=== PATIENT | female | born 1935 | race Caucasian/White ===

== ENCOUNTER 2017-03-31 12:37 | Day surgery (SDC) | payer MEDICARE ==
[~2017-03-31] VITALS: Ht 162.6 cm; Wt 84.4 kg
[~2017-03-31 12:37] MED LIST: AMLO10 PO; AMLO5 PO; AMOCLA875 PO; AMOX250 PO; AMOX500 PO; ASPI325 PO; ATEN50 PO; Alph-E-Mixed400 UNIT PO; Aspirin EC81 MG; B-121000 MC2 PO; BAYER; CALCAVITD PO; CHOL10002 PO; CIPR500 PO; CLOP75 PO; Co Q-10100 MG PO; DILT360ER PO; Desyrel50 MG; ESOM20 PO; FISH1000 PO; HYDACE5 PO; HYDHOMSY; Hydrochloroth12.5 MG PO; ISOMON60ER PO; Isosorbide Mono60 MG PO; METHI10; METHI10 PO; METO100ER PO; MULVITMINF PO; Nitrostat0.4 MG SL; Norco 5-325 Ta1 EACH PO; OMEGA 3 FISH OIL; PRENATAL VITAM1 EAC2 PO; PROM25 PO; ROSU10TA PO; ROSU5 PO; RXOXYACE PO; RXPROM25 PO; TOPROL XL200 MG PO; Tessalon200 MG; Toprol Xl200 MG; Zofran Odt4 MG SL; Zofran8 MG PO; [UNRECOGNIZED DRUG - OTHER]
== END 2017-03-31 16:00 | disposition home or self-care (01) ==
LOC: ORSCSDS 12:37
PROVIDERS: Obstetrics & Gynecology
PROC: 0UB98ZX Excision of Uterus, Via Natural or Artificial Opening Endoscopic, Diagnostic (ICD-10-PCS; principal; 2017-03-31 14:00)
PROC: 0UDB8ZX Extraction of Endometrium, Via Natural or Artificial Opening Endoscopic, Diagnostic (ICD-10-PCS; principal; 2017-03-31 14:00)
DX: N84.0 Polyp of corpus uteri (principal); I10 Essential (primary) hypertension; E03.9 Hypothyroidism, unspecified; E78.5 Hyperlipidemia, unspecified; R73.03 Prediabetes; Z87.891 Personal history of nicotine dependence; I25.10 Atherosclerotic heart disease of native coronary artery without angina pectoris; Z79.82 Long term (current) use of aspirin; Z79.899 Other long term (current) drug therapy
CPT/HCPCS: 76998; 88305; J2250; J2405; J3010; J7120

== ENCOUNTER → 2017-06-22 | Outpatient (CLI) | payer MEDICARE ==
[2017-06-22 17:04] LABS: Creatinine Urine 44.6 mg/dL (27.00-270.00); Protein, Urine Quantitative 123.9 mg/dL (0.0-11.9)
== END | disposition home or self-care (01) ==
LOC: LAB EV 05:00
PROVIDERS: Internal Medicine
DX: N18.3 Chronic kidney disease, stage 3 (moderate) (principal)
CPT/HCPCS: 81050; 82570; 84156

== ENCOUNTER → 2017-11-30 | Outpatient (CLI) | payer MEDICARE | END | disposition home or self-care (01) | LOC: LAB SHORT 08:29 → PLD 08:29 | DX: D48.5 Neoplasm of uncertain behavior of skin (principal) | CPT/HCPCS: 88305 ==

== ENCOUNTER 2018-01-12 20:00 | Emergency (ER) | payer MEDICARE ==
[~2018-01-12] VITALS: Ht 162.6 cm; Wt 85.7 kg
== END 2018-01-12 23:10 | disposition home or self-care (01) ==
LOC: ER 20:00
DX: I10 Essential (primary) hypertension (principal); Z87.891 Personal history of nicotine dependence; Z88.6 Allergy status to analgesic agent; Z79.899 Other long term (current) drug therapy; Z79.82 Long term (current) use of aspirin
CPT/HCPCS: 93005; 93010; 96374; 99282-25; J0360

== ENCOUNTER → 2018-04-21 | Outpatient (CLI) | payer MEDICARE ==
[2018-04-22 14:16] LABS: Stool Occult Bld Immuno 1 Positive (NEGATIVE); Stool Occult Bld Immuno 2 Positive (NEGATIVE); Stool Occult Bld Immuno 3 Positive (NEGATIVE)
== END | disposition home or self-care (01) ==
LOC: LAB EV 06:10
PROVIDERS: Nurse Practitioner
DX: R19.5 Other fecal abnormalities (principal)
CPT/HCPCS: 82274

== ENCOUNTER 2018-05-24 10:24 | Day surgery (SDC) | payer MEDICARE ==
[~2018-05-24] VITALS: Ht 162.6 cm; Wt 83.5 kg
== END 2018-05-24 12:38 | disposition home or self-care (01) ==
LOC: ORSCSDS 10:24
PROVIDERS: Internal Medicine Gastroenterology
PROC: 0DB48ZX Excision of Esophagogastric Junction, Via Natural or Artificial Opening Endoscopic, Diagnostic (ICD-10-PCS; principal; 2018-05-24 11:45)
PROC: 0DBL8ZX Excision of Transverse Colon, Via Natural or Artificial Opening Endoscopic, Diagnostic (ICD-10-PCS; principal; 2018-05-24 11:45)
PROC: 0DB68ZX Excision of Stomach, Via Natural or Artificial Opening Endoscopic, Diagnostic (ICD-10-PCS; principal; 2018-05-24 11:45)
DX: K92.1 Melena (principal); D12.3 Benign neoplasm of transverse colon; K57.30 Diverticulosis of large intestine without perforation or abscess without bleeding; K64.1 Second degree hemorrhoids; K21.0 Gastro-esophageal reflux disease with esophagitis; K29.70 Gastritis, unspecified, without bleeding; K44.9 Diaphragmatic hernia without obstruction or gangrene; I10 Essential (primary) hypertension; E11.9 Type 2 diabetes mellitus without complications; E03.9 Hypothyroidism, unspecified; E78.5 Hyperlipidemia, unspecified; Z87.891 Personal history of nicotine dependence; Z79.899 Other long term (current) drug therapy; Z79.82 Long term (current) use of aspirin
CPT/HCPCS: 88305; 88312; 88341; 88342; J2405; J7120

== ENCOUNTER → 2018-09-20 | Outpatient (CLI) | payer MEDICARE | END | disposition home or self-care (01) | LOC: PLD 11:34 → LAB SHORT 11:34 | DX: L57.0 Actinic keratosis (principal) | CPT/HCPCS: 88305 ==

== ENCOUNTER → 2019-03-27 | Outpatient (CLI) | payer MEDICARE | END | disposition home or self-care (01) | LOC: PLD 12:17 → LAB SHORT 12:17 | DX: L91.8 Other hypertrophic disorders of the skin (principal) | CPT/HCPCS: 88304 ==

== ENCOUNTER 2019-09-14 14:28 | Observation (INO) | payer MEDICARE ==
[~2019-09-14] VITALS: Ht 162.6 cm; Wt 86.8 kg
[~2019-09-14 14:28] MED LIST changes: -AMLO10 PO; -Aspirin EC81 MG; -Isosorbide Mono60 MG PO; -METHI10; -ROSU5 PO; -Toprol Xl200 MG
[2019-09-14 14:57] LABS: BASOPHILS ABSOLUTE AUTO 0.03 K/mm3 (0.00-0.23); BASOPHILS PERCENT AUTO 1 % (0-2); EOSINOPHILS ABSOLUTE AUTO 0.15 K/mm3 (0.00-0.68); EOSINOPHILS PERCENT AUTO 2 % (0-6); Hematocrit 36.9 % (33.0-51.0); Hemoglobin 12.4 g/dL (11.5-16.0); IMMATURE GRAN ABSOLUTE AUTO 0.03 K/mm3 (0.00-0.10); IMMATURE GRAN PERCENT AUTO 1 % (0-1); LYMPHOCYTES ABSOLUTE AUTO 1.78 K/mm3 (0.84-5.20); LYMPHOCYTES PERCENT AUTO 29 % (21-46); MONOCYTES ABSOLUTE AUTO 0.82 K/mm3 (0.16-1.47); MONOCYTES PERCENT AUTO 13 % (4-13); Mean Corpuscular HGB 30.1 pg (26.0-34.0); Mean Corpuscular HGB Conc 33.6 g/dL (31.5-36.5); Mean Corpuscular Volume 90 fL (80-100); Mean Platelet Volume 9.5 fL (9.1-12.4); NEUTROPHILS ABSOLUTE AUTO 3.38 K/mm3 (1.96-9.15); NEUTROPHILS PERCENT AUTO 55 % (41-73); Platelet Count 221 K/mm3 (150-400); RDW Coefficient Variation 12.9 % (11.7-14.2); RDW Standard Deviation 42.3 fL (35.1-46.3); Red Blood Cell Count 4.12 M/mm3 (3.80-5.20); White Blood Cell Count 6.19 K/mm3 (4.00-11.30)
[2019-09-14 15:14] LABS: Troponin I <0.015 ng/mL (0.000-0.040)
[2019-09-14 15:16] LABS: Alanine Aminotransfer (ALT/SGP 25 U/L (12-78); Albumin/Globulin Ratio 0.7 (0.8-1.8); Alk Phos 82 U/L (50-136); Anion Gap 10 mmol/L (6-16); Aspartate Aminotrans (AST/SGOT 23 U/L (12-37); Bilirubin, Total 0.5 mg/dL (0.1-1.0); Blood Urea Nitrogen 20 mg/dL (8-24); Bun/Creatinine Ratio 15.7 (12.0-20.0); CO2, Blood 24 mmol/L (21-32); Calcium, Blood 9.2 mg/dL (8.5-10.1); Chloride, Blood 97 mmol/L (98-108); Creatinine, Blood 1.27 mg/dL (0.40-1.00); Globulin, Blood 4.1 g/dL (2.2-4.0); Glomerular Filtration Rate 43 (60-); Glucose, Blood 190 mg/dL (70-99); Sodium, Blood 131 mmol/L (136-145); Total Protein, Blood 7.1 g/dL (6.4-8.2)
[2019-09-14] MEDS ORDERED: AMLODIPINE BES2.5 MG PO (18:22)
[2019-09-14] MEDS ORDERED: Isosorbide Mono60 MG (18:23)
[2019-09-14] MEDS ORDERED: Toprol Xl200 MG PO (18:24)
[2019-09-14] MEDS ORDERED: HYDCHL12.5 PO (18:24)
[2019-09-14] MEDS ORDERED: METHI10 PO (18:25)
[2019-09-14] MEDS ORDERED: ROSU5 PO (18:25)
[2019-09-14] MEDS ORDERED: VALSARTAN40 MG PO (18:26)
[2019-09-14] MEDS ORDERED: Aspirin EC81 MG PO (18:34)
[2019-09-15 04:26] LABS: Mean Corpuscular HGB 30.5 pg (26.0-34.0); Mean Corpuscular HGB Conc 33.3 g/dL (31.5-36.5); Mean Corpuscular Volume 91 fL (80-100); Mean Platelet Volume 9.4 fL (9.1-12.4); Platelet Count 206 K/mm3 (150-400); RDW Coefficient Variation 12.9 % (11.7-14.2); Red Blood Cell Count 3.94 M/mm3 (3.80-5.20)
[2019-09-15 04:46] LABS: Anion Gap 8 mmol/L (6-16); Blood Urea Nitrogen 21 mg/dL (8-24); Bun/Creatinine Ratio 15.3 (12.0-20.0); CO2, Blood 27 mmol/L (21-32); Chloride, Blood 98 mmol/L (98-108); Creatinine, Blood 1.37 mg/dL (0.40-1.00); Glomerular Filtration Rate 39 (60-); Glucose, Blood 169 mg/dL (70-99); Magnesium, Blood 1.8 mg/dL (1.6-2.4); Potassium, Blood 3.8 mmol/L (3.5-5.5); Sodium, Blood 133 mmol/L (136-145); Troponin I <0.015 ng/mL (0.000-0.040)
--- NOTE | 2019-09-15 07:37 | NUR ---
SHIFT SUMMARY PATIENT ARRIVED TO MEDICAL FLOOR VIA STRETCHER. PATIENT IS ALERT AND ORIENTED AND WAS ABLE TO SELF TRANSFER BETWEEN BED AND COMMODE INDEPENDENTLY. PATIENT HAS HAD NO COMPLAINTS OF CHEST PAIN SINCE ADMIT. IV PATENT AND INFUSING WITH NORMAL SALINE AT 75 ML/HR. BED IN LOWEST POSITION WITH WHEELS LOCKED. CALL LIGHT WITHIN REACH. REPORT GIVEN TO ONCOMING RN.
--- NOTE | 2019-09-15 19:57 | NUR ---
SUMMARY- PT A/O X3. TOLERATING FOOD AND FLUIDS. DENIED CHEST PAIN ALL DAY. HAD A SHOWER. PT UP AMBULATING IN THE LIZ FREQ. PT HAS REFRAINED FROM ALL CAFFEINE AND CHOCHLATE ALL DAY. AWARE OF PLAN FOR CARDIAC STRESS TEST FIRST THING IN THE AM BETWEEN [phone]. PLAN FOR NPO AFTER MN EXCEPT WATER AND MEDS. PLAN FOR STRESS PORTION 1000 AND TO HOLD ISOSORBIDE AM DOSE UNTIL AFTER STRESS PORTION. MAY GIVE METOPROLOL IN AM. PT'S BLOOD PRESURE MARGIONALLY ELEVATED, DR ADLER CALLED TO GIVE FIRST DOES OF NORVASC THIS PM AND CONT DAILY. REPORTED TO NOC RN TO F/U WITH BP.
[2019-09-15 23:08] LABS: Source, Urine Clean Catch
[2019-09-15 23:26] LABS: Bilirubin, Urine Neg (Neg); Blood, Urine Neg (Neg); Glucose Qualitative, Urine Neg (Neg); Ketones, Urine Neg (Neg); Leukocyte Esterase, Urine Neg (Neg); Nitrite, Urine Neg (Neg); Protein, Urine 3+ (Neg); Urobilinogen, Urine NORM (Normal); pH, Urine 6.5 (5.0-8.0)
[2019-09-15 23:27] LABS: Appearance, Urine Clear (Clear); Color, Urine Yellow (P-Yellow)
[2019-09-15 23:33] LABS: Bacteria Rare /hpf; Red Blood Cells, Urine Not Seen /hpf (0-2); Squamous Epithelial Cells Rare /hpf (Few); White Blood Cells, Urine 0-2 /hpf (0-5)
--- NOTE | 2019-09-16 00:47 | NUR ---
PHYSICIAN COMMUNICATION CONTACTED THE CONTACT WORKER LITHOGRAPHY PHYSICIAN, SHEY, AT 222 TO NOTIFY HIM THAT THE PATIENT HAD A CHANGE IN MENTAL STATUS. THIS RN REPORTED THAT AT 1900 THE PATIENT WAS FULLY ALERT AND ORIENTED AND CONVERSING WITH STAFF, BUT AT 2200 THE PATIENT WAS DIFFICULT TO ROUSE AND WAS DROWSY AND SLUGGISH. THIS RN RELATED THAT THE PATIENT WAS UNABLE TO TELL WHERE SHE WAS OR WHERE SHE LIVED AND SHE SEEMED ACUTELY CONFUSED. REPORTED THAT THE PATIENT HAD A BLOOD SUGAR OF 194 AND HER TELE WAS NORMAL SINUS RHYTHM AT 67. DR KAT SAID THAT EITHER HE OR DR ESTRADA WOULD COME TO SEE THE PATIENT. DR ESTRADA ASSESSED THE PATIENT AND ORDERED A STAT HEAD CT WO CONTRAST AND A UA.
--- NOTE | 2019-09-16 06:39 | NUR ---
SHIFT SUMMARY PATIENT ALERT AND ORIENTED. HAD NO COMPLAINTS OF CHEST PAIN. PATIENT HAD AN EPISODE OF CHANGE IN MENTATION AND WAS EXTREMELY CONFUSED WHEN AWOKEN FROM A DEEP SLEEP. PATIENT WAS AWAKE LONGER AND BECAME MORE AWARE OF HER SURROUNDINGS SHE RETURNED TO HER BASELINE MENTATION. PATIENT WAS SEEN BY DR ESTRADA AND HAD A HEAD CT AND UA DONE DURING THIS TIME TO RULE OUT ANY ACUTE PROBLEMS. PATIENT LATER STATED THAT THIS SORT OF BEHAVIOR IS NORMAL FOR HER WHEN WAKING FROM A DEEP SLEEP. IV PATENT AND FLUSHED. BED IN LOWEST POSITION WITH WHEELS LOCKED AND ALARM ON. CALL LIGHT WITHIN REACH. REPORT GIVEN TO ONCOMING RN.
[2019-09-16] MEDS ORDERED: AMLO10 PO (14:09)
[2019-09-16] MEDS ORDERED: CLOP75 PO (14:10)
--- NOTE | 2019-09-16 16:26 | NUR ---
PT DISCHARGED 1620 WITH DC INSTRUCTIONS. MEDS FAXED TO PHARMACY WHICH IS CLOSED NOW. ABLE TO GIVE ONE DOSE OF PLAVIX BEFORE DC TO START DOSE UNTIL SHE CAN HAVE ACESS TO RX TOMORROW. BP WAS ELEVATED PRIOR TO DC, CALL TO DR ADLER, GAVE PRN MED AND HCTZ DOSE AND BP CAME DOWN NICELY. PT IS DRIVING HOME WITH SISTER. HAS HAD NO CHEST DISCOMFORT TODAY. WILL SCHEDULE O.P CARDIAC STRESS TEST. UNABLE TO PERFORM PROCEDURE TODAY MACHINE WAS BROKEN.
== END 2019-09-16 16:20 | disposition home or self-care (01) ==
LOC: ER 14:28 → MEDS 14:29 → ER 20:26 → MEDS 20:35
PROVIDERS: Emergency Medicine; Internal Medicine; Nurse Practitioner Acute Care; ADMIT Internal Medicine
DX: R07.9 Chest pain, unspecified (principal); E05.90 Thyrotoxicosis, unspecified without thyrotoxic crisis or storm; E78.5 Hyperlipidemia, unspecified; I12.9 Hypertensive chronic kidney disease with stage 1 through stage 4 chronic kidney disease, or unspecified chronic kidney disease; E11.22 Type 2 diabetes mellitus with diabetic chronic kidney disease; I25.10 Atherosclerotic heart disease of native coronary artery without angina pectoris; Z95.5 Presence of coronary angioplasty implant and graft; Z79.899 Other long term (current) drug therapy; Z79.82 Long term (current) use of aspirin; N18.3 Chronic kidney disease, stage 3 (moderate); K21.9 Gastro-esophageal reflux disease without esophagitis; Z87.891 Personal history of nicotine dependence; Z88.6 Allergy status to analgesic agent
CPT/HCPCS: 36415; 70450; 71045; 80048; 80053; 81001; 82947; 83735; 84484; 85025; 85027; 93005; 93010; 96361; 96372; 96374; 96375; 99285-25; A9270; A9270-GY; G0378; J0706; J1650; J2405; J2785; J3010; J7030

== ENCOUNTER → 2020-04-01 | Outpatient (CLI) | payer MEDICARE ==
[~2020-04-01] MED LIST changes: +AMLO10 PO; +AMLODIPINE BES2.5 MG PO; +Aspirin EC81 MG PO; +FENO67 PO; +HYDCHL12.5 PO; +Isosorbide Mono60 MG; +NITR.4SL SL; +ROSU5 PO; +Toprol Xl200 MG PO; +VALSARTAN40 MG PO
== END | disposition home or self-care (01) ==
LOC: LAB 13:10 → LAB SHORT 13:10
DX: D04.39 Carcinoma in situ of skin of other parts of face (principal)
CPT/HCPCS: 88305

== ENCOUNTER 2020-06-21 10:14 | Observation (INO) | payer MEDICARE ==
[~2020-06-21] VITALS: Ht 162.6 cm; Wt 88.5 kg
[~2020-06-21 10:14] MED LIST changes: -FENO67 PO; -NITR.4SL SL
[2020-06-21 10:48] LABS: BASOPHILS ABSOLUTE AUTO 0.03 K/mm3 (0.00-0.23); BASOPHILS PERCENT AUTO 1 % (0-2); EOSINOPHILS ABSOLUTE AUTO 0.15 K/mm3 (0.00-0.68); EOSINOPHILS PERCENT AUTO 3 % (0-6); Hematocrit 36.2 % (33.0-51.0); Hemoglobin 12.4 g/dL (11.5-16.0); IMMATURE GRAN ABSOLUTE AUTO 0.02 K/mm3 (0.00-0.10); IMMATURE GRAN PERCENT AUTO 0 % (0-1); LYMPHOCYTES ABSOLUTE AUTO 1.48 K/mm3 (0.84-5.20); LYMPHOCYTES PERCENT AUTO 25 % (21-46); MONOCYTES ABSOLUTE AUTO 0.59 K/mm3 (0.16-1.47); MONOCYTES PERCENT AUTO 10 % (4-13); Mean Corpuscular HGB 30.7 pg (26.0-34.0); Mean Corpuscular HGB Conc 34.3 g/dL (31.5-36.5); Mean Corpuscular Volume 90 fL (80-100); NEUTROPHILS ABSOLUTE AUTO 3.58 K/mm3 (1.96-9.15); NEUTROPHILS PERCENT AUTO 61 % (41-73); Platelet Count 225 K/mm3 (150-400); RDW Coefficient Variation 13.8 % (11.7-14.2); RDW Standard Deviation 45.1 fL (35.1-46.3); Red Blood Cell Count 4.04 M/mm3 (3.80-5.20); White Blood Cell Count 5.85 K/mm3 (4.00-11.30)
[2020-06-21 11:09] LABS: Alanine Aminotransfer (ALT/SGP 19 U/L (12-78); Albumin, Blood 3.2 g/dL (3.4-5.0); Albumin/Globulin Ratio 0.8 (0.8-1.8); Alk Phos 65 U/L (50-136); Anion Gap 7 mmol/L (6-16); Aspartate Aminotrans (AST/SGOT 16 U/L (12-37); Bilirubin, Total 0.3 mg/dL (0.1-1.0); Blood Urea Nitrogen 18 mg/dL (8-24); Bun/Creatinine Ratio 14.2 (12.0-20.0); CO2, Blood 24 mmol/L (21-32); Calcium, Blood 9.1 mg/dL (8.5-10.1); Chloride, Blood 106 mmol/L (98-108); Creatinine, Blood 1.27 mg/dL (0.40-1.00); Globulin, Blood 3.8 g/dL (2.2-4.0); Glomerular Filtration Rate 43 (60-); Glucose, Blood 154 mg/dL (70-99); Potassium, Blood 4.6 mmol/L (3.5-5.5); Sodium, Blood 137 mmol/L (136-145); Troponin I <0.015 ng/mL (0.000-0.040)
[2020-06-21] MEDS ORDERED: NITR.4SL SL (12:00)
--- NOTE | 2020-06-21 19:12 | NUR ---
SHIFT SUMMARY: PATIENT ADMIT (OBS) FROM ED THIS SHIFT. PT A&O; CALM AND COOPERATIVE WITH CARE. NO C/O PAIN SINCE ARRIVAL ON MEDICAL. TELE IN PLACE; SR @ 71 PER FLIGHT ATTENDANT/INFLIGHT MANAGER. TROPONINS X2 NEGATIVE; ADDITIONAL TROPONIN PLANNED. CLEAR LIQUID DIET; PT TOLERATING WELL. REPORT GIVEN TO ONCOMING RN.
[2020-06-22 04:45] LABS: BASOPHILS ABSOLUTE AUTO 0.04 K/mm3 (0.00-0.23); BASOPHILS PERCENT AUTO 1 % (0-2); EOSINOPHILS ABSOLUTE AUTO 0.18 K/mm3 (0.00-0.68); EOSINOPHILS PERCENT AUTO 3 % (0-6); Hematocrit 39.2 % (33.0-51.0); IMMATURE GRAN ABSOLUTE AUTO 0.01 K/mm3 (0.00-0.10); IMMATURE GRAN PERCENT AUTO 0 % (0-1); LYMPHOCYTES PERCENT AUTO 28 % (21-46); MONOCYTES ABSOLUTE AUTO 0.76 K/mm3 (0.16-1.47); MONOCYTES PERCENT AUTO 12 % (4-13); Mean Corpuscular HGB 30.7 pg (26.0-34.0); Mean Corpuscular HGB Conc 33.2 g/dL (31.5-36.5); Mean Corpuscular Volume 93 fL (80-100); Mean Platelet Volume 10.2 fL (9.1-12.4); NEUTROPHILS ABSOLUTE AUTO 3.56 K/mm3 (1.96-9.15); NEUTROPHILS PERCENT AUTO 56 % (41-73); Platelet Count 221 K/mm3 (150-400); RDW Coefficient Variation 14.1 % (11.7-14.2); RDW Standard Deviation 47.6 fL (35.1-46.3); Red Blood Cell Count 4.24 M/mm3 (3.80-5.20); White Blood Cell Count 6.35 K/mm3 (4.00-11.30)
[2020-06-22 05:22] LABS: Alanine Aminotransfer (ALT/SGP 20 U/L (12-78); Albumin, Blood 3.2 g/dL (3.4-5.0); Albumin/Globulin Ratio 0.8 (0.8-1.8); Alk Phos 63 U/L (50-136); Anion Gap 7 mmol/L (6-16); Aspartate Aminotrans (AST/SGOT 15 U/L (12-37); Bilirubin, Total 0.7 mg/dL (0.1-1.0); Blood Urea Nitrogen 16 mg/dL (8-24); Bun/Creatinine Ratio 13.2 (12.0-20.0); CHOL/HDL RATIO 3.8; CO2, Blood 27 mmol/L (21-32); Calcium, Blood 9.5 mg/dL (8.5-10.1); Chloride, Blood 105 mmol/L (98-108); Cholesterol 154 mg/dL (50-200); Creatinine, Blood 1.21 mg/dL (0.40-1.00); Globulin, Blood 4.2 g/dL (2.2-4.0); Glomerular Filtration Rate 45 (60-); Glucose, Blood 126 mg/dL (70-99); HDL Cholesterol 40 mg/dL (>39); LDL/HDL RATIO Unable to Calculate; Low Density Lipoprotein Chol Unable to Calculate mg/dL (0-110); Sodium, Blood 139 mmol/L (136-145); Total Protein, Blood 7.4 g/dL (6.4-8.2); Triglycerides 456 mg/dL (30-160); Very Low Density Lipoprot Chol Unable to Calculate mg/dL (6-32)
--- NOTE | 2020-06-22 05:28 | NUR ---
PT IS A/O AND PLEASANT, DENIES PAIN OR SOB, PROVIDER CALLED THIS SHIFT PT WAS BRADYCARDIC AT 58 PER TELE MONITOR, SCHEDULED 200 MG PO METOPROLOL WAS HELD AND PER PROVIDER ORDER A OT DOSE OF 100MG METOPROLOL GIVEN. CBG IN AM, TROPONINS HAVE BEEN NEGATIVE SO FAR THIS SHIFT.
[2020-06-22] MEDS ORDERED: FENO67 PO (12:33)
--- NOTE | 2020-06-22 18:29 | NUR ---
PATIENT DISCHARGE:PATIENT DISCHARGED TO HOME THIS SHIFT. MEDICATION RECONCILIATION COMPLETED; [facility] DISCHARGE EDUCATION COMPLETED WITH PATIENT. PATIENT TRANSPORTED TO EXIT BY [facility] ST[facility] WITH WHEELCHAIR AT 1545. PATIENT DEPARTED [facility] VIA PRIVATE AUTO.
== END 2020-06-22 15:44 | disposition home or self-care (01) ==
LOC: ER 10:14 → ERHOLD 10:15 → MEDS 17:20 → ENPENDDIS 06-22 12:00 → MEDS 06-22 15:44
PROVIDERS: Physician Assistant; ADMIT Family Medicine
DX: R07.9 Chest pain, unspecified (principal); I25.10 Atherosclerotic heart disease of native coronary artery without angina pectoris; I71.4 Abdominal aortic aneurysm, without rupture; E11.22 Type 2 diabetes mellitus with diabetic chronic kidney disease; I12.9 Hypertensive chronic kidney disease with stage 1 through stage 4 chronic kidney disease, or unspecified chronic kidney disease; N18.30 Chronic kidney disease, stage 3 unspecified; E78.1 Pure hyperglyceridemia; I25.2 Old myocardial infarction; K85.90 Acute pancreatitis without necrosis or infection, unspecified; E66.9 Obesity, unspecified; Z87.891 Personal history of nicotine dependence; Z95.5 Presence of coronary angioplasty implant and graft
CPT/HCPCS: 36415; 71046; 76705; 80053; 80061; 82947; 83036; 83690; 84484; 85025; 93005; 93010; A9270; A9270-GY; J1650; J7120

== ENCOUNTER 2020-10-02 07:38 | Inpatient (IN) | payer MEDICARE ==
[~2020-10-02] VITALS: Ht 162.6 cm; Wt 86.4 kg
[~2020-10-02 07:38] MED LIST changes: +FENO67 PO; -Isosorbide Mono60 MG; +Isosorbide Mono60 MG PO; +NITR.4SL SL; +VALS80 PO; -VALSARTAN40 MG PO
[2020-10-02] MEDS ORDERED: Vitamin D2000 UNIT PO (08:01)
[2020-10-02] MEDS ORDERED: GLIP5ER PO (08:02)
[2020-10-02 08:27] LABS: BASOPHILS ABSOLUTE AUTO 0.02 K/mm3 (0.00-0.23); BASOPHILS PERCENT AUTO 0 % (0-2); EOSINOPHILS ABSOLUTE AUTO 0.01 K/mm3 (0.00-0.68); EOSINOPHILS PERCENT AUTO 0 % (0-6); Hematocrit 32.9 % (33.0-51.0); Hemoglobin 11.1 g/dL (11.5-16.0); IMMATURE GRAN ABSOLUTE AUTO 0.01 K/mm3 (0.00-0.10); IMMATURE GRAN PERCENT AUTO 0 % (0-1); LYMPHOCYTES ABSOLUTE AUTO 1.05 K/mm3 (0.84-5.20); LYMPHOCYTES PERCENT AUTO 15 % (21-46); MONOCYTES ABSOLUTE AUTO 0.78 K/mm3 (0.16-1.47); MONOCYTES PERCENT AUTO 12 % (4-13); Mean Corpuscular HGB 30.5 pg (26.0-34.0); Mean Corpuscular HGB Conc 33.7 g/dL (31.5-36.5); Mean Corpuscular Volume 90 fL (80-100); NEUTROPHILS ABSOLUTE AUTO 4.93 K/mm3 (1.96-9.15); NEUTROPHILS PERCENT AUTO 73 % (41-73); Platelet Count 253 K/mm3 (150-400); RDW Coefficient Variation 13.2 % (11.7-14.2); RDW Standard Deviation 44.3 fL (35.1-46.3); Red Blood Cell Count 3.64 M/mm3 (3.80-5.20)
[2020-10-02 08:50] LABS: Albumin, Blood 2.6 g/dL (3.4-5.0); Albumin/Globulin Ratio 0.5 (0.8-1.8); Bilirubin, Total 0.6 mg/dL (0.1-1.0); Bun/Creatinine Ratio 11.9 (12.0-20.0); Calcium, Blood 9.1 mg/dL (8.5-10.1); Creatinine, Blood 1.77 mg/dL (0.40-1.00); Globulin, Blood 4.8 g/dL (2.2-4.0); Potassium, Blood 3.6 mmol/L (3.5-5.5); Total Protein, Blood 7.4 g/dL (6.4-8.2)
[2020-10-02 12:30] LABS: Source, Urine Clean Catch
[2020-10-02 12:34] LABS: Appearance, Urine Clear (Clear); Bilirubin, Urine Neg (Neg); Blood, Urine 1+ (Neg); Color, Urine Yellow (P-Yellow); Glucose Qualitative, Urine Neg (Neg); Ketones, Urine Neg (Neg); Leukocyte Esterase, Urine Neg (Neg); Nitrite, Urine Neg (Neg); Protein, Urine 4+ (Neg); Specific Gravity, Urine 1.015 (1.003-1.022); Urobilinogen, Urine NORM (Normal); pH, Urine 6.5 (5.0-8.0)
[2020-10-02 13:24] LABS: Bacteria Rare /hpf; Red Blood Cells, Urine Not Seen /hpf (0-2); Squamous Epithelial Cells Rare /hpf (Few)
[2020-10-02] MEDS ORDERED: FURO20 PO (16:31)
[2020-10-03 05:06] LABS: BASOPHILS ABSOLUTE AUTO 0.01 K/mm3 (0.00-0.23); BASOPHILS PERCENT AUTO 0 % (0-2); EOSINOPHILS PERCENT AUTO 0 % (0-6); Hematocrit 35.5 % (33.0-51.0); Hemoglobin 11.7 g/dL (11.5-16.0); IMMATURE GRAN ABSOLUTE AUTO 0.02 K/mm3 (0.00-0.10); IMMATURE GRAN PERCENT AUTO 0 % (0-1); LYMPHOCYTES ABSOLUTE AUTO 0.62 K/mm3 (0.84-5.20); LYMPHOCYTES PERCENT AUTO 11 % (21-46); MONOCYTES ABSOLUTE AUTO 0.14 K/mm3 (0.16-1.47); MONOCYTES PERCENT AUTO 2 % (4-13); Mean Corpuscular Volume 91 fL (80-100); Mean Platelet Volume 10.3 fL (9.1-12.4); NEUTROPHILS ABSOLUTE AUTO 5.07 K/mm3 (1.96-9.15); NEUTROPHILS PERCENT AUTO 87 % (41-73); Platelet Count 262 K/mm3 (150-400); RDW Coefficient Variation 13.3 % (11.7-14.2); RDW Standard Deviation 44.7 fL (35.1-46.3); White Blood Cell Count 5.86 K/mm3 (4.00-11.30)
[2020-10-03 05:53] LABS: Alanine Aminotransfer (ALT/SGP 19 U/L (12-78); Albumin, Blood 2.5 g/dL (3.4-5.0); Albumin/Globulin Ratio 0.5 (0.8-1.8); Alk Phos 51 U/L (50-136); Anion Gap 8 mmol/L (6-16); Aspartate Aminotrans (AST/SGOT 13 U/L (12-37); Bilirubin, Total 0.5 mg/dL (0.1-1.0); Blood Urea Nitrogen 23 mg/dL (8-24); Bun/Creatinine Ratio 12.3 (12.0-20.0); CO2, Blood 23 mmol/L (21-32); Calcium, Blood 9.6 mg/dL (8.5-10.1); Chloride, Blood 105 mmol/L (98-108); Creatinine, Blood 1.87 mg/dL (0.40-1.00); Globulin, Blood 5.2 g/dL (2.2-4.0); Glomerular Filtration Rate 26 (60-); Glucose, Blood 218 mg/dL (70-99); Potassium, Blood 3.9 mmol/L (3.5-5.5); Sodium, Blood 136 mmol/L (136-145); Total Protein, Blood 7.7 g/dL (6.4-8.2); Triglycerides 148 mg/dL (30-160)
--- NOTE | 2020-10-03 06:35 | NUR ---
COMPENSATION INTERN SUMMARY PT AAOX3. VERY SLEEPY AT START OF SHIFT BUT WAS ABLE TO COMMUNICATE AND TAKE MEDS WITH WATER. PT REFUSED LOVENOX INJECTION AT BEDTIME. REMAINS ON 2L O2 VIA NC. PT HAS SLEPT MOST OF THE NIGHT BUT DOES CALL APPROPRIATELY FOR ASSISTANCE TO BSC. VSS, WILL CONTINUE TO MONITOR.
--- NOTE | 2020-10-03 18:33 | NUR ---
Pt has remained stable this shift. She is alert, oriented, pleasant. No concerns with pt. Possible discharge tomorrow, per
--- NOTE | 2020-10-04 06:05 | NUR ---
SHIFT SUMMARY- PT. A&O, PLEASANT, AND COOPERATIVE WITH CARE. INDEPENDENT IN ROOM. HAD NO COMPLAINTS OF PAIN OR DISCOMFORT DURING THE NIGHT. SLEPT T/O THE NIGHT, NO APPARENT DISTRESS NOTED. ON RA, VSS. DENIES ANY NEEDS AT THIS TIME. CALL LIGHT WITHIN REACH AND SIDE RAILS UPX2. WILL CONT TO MONITOR.
[2020-10-04] MEDS ORDERED: Acetaminophen650 M1 PO (17:36)
[2020-10-04] MEDS ORDERED: ELIQUIS2.5 MG PO (17:37)
[2020-10-04] MEDS ORDERED: FAMO20 PO (17:38)
[2020-10-04] MEDS ORDERED: ASCORBIC ACID500 MG PO (17:38)
[2020-10-04] MEDS ORDERED: ZINC220 PO (17:39)
--- NOTE | 2020-10-04 18:35 | NUR ---
Discharge Summary Discharging to home. Reviewed discharge paperwork with patient and daughter at bedside. Questions answered to their satisfaction. Dr. Caldera notified this RN of changes to discharge meds : To cancel Eliquis d/t AAA and keep all others. This was relayed to patient and daughter. Per patient "I will run these (medications) by my kidney doctor and my doctor before taking them." Reassured patient that Dr. Caldera works in same office as PCP and that PCP will know what meds have been prescribed. Copy of d/c papers give. IV removed, WNL. Escorted by this RN via w/c. Personal belongings sent home.
== END 2020-10-04 18:23 | disposition home or self-care (01) | DRG 177 ==
LOC: ER 07:38 → ERHOLD 07:39 → MEDS 17:07
PROVIDERS: Emergency Medicine; ADMIT Family Medicine
PROC: 8E0ZXY6 Isolation (ICD-10-PCS; principal; 2020-10-02)
DX: U07.1 COVID-19 (principal); J12.82 Pneumonia due to coronavirus disease 2019; J96.01 Acute respiratory failure with hypoxia; N18.4 Chronic kidney disease, stage 4 (severe); I12.9 Hypertensive chronic kidney disease with stage 1 through stage 4 chronic kidney disease, or unspecified chronic kidney disease; E11.22 Type 2 diabetes mellitus with diabetic chronic kidney disease; E78.1 Pure hyperglyceridemia; K21.9 Gastro-esophageal reflux disease without esophagitis; I71.4 Abdominal aortic aneurysm, without rupture; Z98.890 Other specified postprocedural states; I25.2 Old myocardial infarction; Z88.8 Allergy status to other drugs, medicaments and biological substances; Z79.82 Long term (current) use of aspirin; Z79.84 Long term (current) use of oral hypoglycemic drugs; Z79.899 Other long term (current) drug therapy
CPT/HCPCS: 36415; 71045; 74022; 74177; 78580; 80053; 81001; 82728; 82947; 83690; 84145; 84478; 85025; 85379; 85651; 86140; 93005; 93010; 96365; 96366; 96375; 96376; 99285-25; A9270; A9540; J0696; J1650; J2270; J2405; J2920; Q9967

== ENCOUNTER 2021-02-02 09:25 | Emergency (ER) | payer MEDICARE ==
[~2021-02-02] VITALS: Ht 162.6 cm; Wt 81.7 kg
[~2021-02-02 09:25] MED LIST changes: +ASCORBIC ACID500 MG PO; +Acetaminophen650 M1 PO; +ELIQUIS2.5 MG PO; +FAMO20 PO; +FURO20 PO; +GLIP5ER PO; +Vitamin D2000 UNIT PO; +ZINC220 PO
[2021-02-02] MEDS ORDERED: HYDR1TAB94 PO (10:56)
== END 2021-02-02 11:02 | disposition home or self-care (01) ==
LOC: ER 09:25
DX: S46.011A Strain of muscle(s) and tendon(s) of the rotator cuff of right shoulder, initial encounter (principal); M25.462 Effusion, left knee; M25.521 Pain in right elbow; I10 Essential (primary) hypertension; E11.9 Type 2 diabetes mellitus without complications; I25.2 Old myocardial infarction; Z88.6 Allergy status to analgesic agent; Z79.82 Long term (current) use of aspirin; Z79.899 Other long term (current) drug therapy; W18.30XA Fall on same level, unspecified, initial encounter
CPT/HCPCS: 73030; 99284; A9270

== ENCOUNTER 2021-02-07 10:35 | Emergency (ER) | payer MEDICARE ==
[~2021-02-07] VITALS: Ht 162.6 cm; Wt 86.2 kg
[~2021-02-07 10:35] MED LIST changes: +HYDR1TAB94 PO
[2021-02-07] MEDS ORDERED: OXYC5 PO (12:33)
== END 2021-02-07 12:57 | disposition home or self-care (01) ==
LOC: ER 10:35
DX: M25.461 Effusion, right knee (principal); I10 Essential (primary) hypertension; E11.9 Type 2 diabetes mellitus without complications; I25.2 Old myocardial infarction; Z87.891 Personal history of nicotine dependence; Z79.899 Other long term (current) drug therapy; Z79.82 Long term (current) use of aspirin
CPT/HCPCS: 93971; 99283-25

== ENCOUNTER → 2021-05-14 | Outpatient (CLI) | payer MEDICARE ==
[~2021-05-14] MED LIST changes: +OXYC5 PO
[2021-05-14 14:43] LABS: Calcium, Urine 5.1 mg/dL (< 17.5)
[2021-05-14 15:16] LABS: Creatinine Urine 33.8 mg/dL (27.00-270.00)
[2021-05-14 15:45] LABS: Calcium, Urine Calculation 183.6 mg/24hrs (42.0-353.0)
== END ==
LOC: LAB SHORT 09:00 → LAB 09:00
PROVIDERS: Internal Medicine Endocrinology, Diabetes & Metabolism
DX: N25.81 Secondary hyperparathyroidism of renal origin (principal)
CPT/HCPCS: 81050; 82340; 82570

== ENCOUNTER 2021-09-29 11:01 | Day surgery (SDC) | payer MEDICARE ==
[~2021-09-29] VITALS: Ht 162.6 cm; Wt 88.1 kg
[~2021-09-29 11:01] MED LIST changes: +FERSU300
--- NOTE | 2021-09-29 11:35 | NUR ---
REPORT FROM ANA MARIA CUETO RN. PT AXOX4, ABLE TO REPOSITION SELF IN BED.
--- NOTE | 2021-09-29 12:12 | NUR ---
09/29/21 1212 Sumit Sparks HISTORY, CHART, MEDICATIONS AND ALLERGIES REVIEWED BEFORE START OF PROCEDURE. PATIENT CONFIRMS NPO STATUS AND AGREES WITH SCHEDULED PROCEDURE. 3-LEAD EKG REVIEWED WITH PHYSICIAN PRIOR TO START OF PROCEDURE. MONITOR INTACT WITH CONTINUOUS PULSE OXIMETRY,CAPNOGRAPHY, 3-LEAD EKG, INTERMITTENT BP. SUPPLEMENTAL O2 TO BE TITRATED THROUGHOUT PROCEDURE TO MAINTAIN O2 SATURATION ABOVE 90%. PATIENT DETERMINED TO BE ASA APPROPRIATE FOR PROPOFOL SEDATION PRIOR TO START OF PROCEDURE BY DR. MARTÍNEZ.
--- NOTE | 2021-09-29 12:34 | NUR ---
ACCEPTED PATIENT VSS. PATIENT CONTINUES TO SLEEP
--- NOTE | 2021-09-29 13:04 | NUR ---
Discharge instructions reviewed with patient. Patient verbalizes understanding. Copy given to patient to take home. Patient States Post-Procedure ride home has been arranged. Discharged via wheelchair to private car for ride home.
== END 2021-09-29 13:06 | disposition home or self-care (01) ==
LOC: ORSCMMR 11:01 → ORD 12:15 → ORSCMMR 13:06
PROVIDERS: Student in an Organized Health Care Education/Training Program
PROC: 0DB68ZX Excision of Stomach, Via Natural or Artificial Opening Endoscopic, Diagnostic (ICD-10-PCS; principal; 2021-09-29 12:15)
DX: K31.A0 Gastric intestinal metaplasia, unspecified (principal); K29.00 Acute gastritis without bleeding; K44.9 Diaphragmatic hernia without obstruction or gangrene; E11.22 Type 2 diabetes mellitus with diabetic chronic kidney disease; I12.9 Hypertensive chronic kidney disease with stage 1 through stage 4 chronic kidney disease, or unspecified chronic kidney disease; N18.30 Chronic kidney disease, stage 3 unspecified; E03.9 Hypothyroidism, unspecified; I25.10 Atherosclerotic heart disease of native coronary artery without angina pectoris; G25.81 Restless legs syndrome; K21.9 Gastro-esophageal reflux disease without esophagitis; Z79.82 Long term (current) use of aspirin; Z79.84 Long term (current) use of oral hypoglycemic drugs; Z79.899 Other long term (current) drug therapy; Z87.891 Personal history of nicotine dependence
CPT/HCPCS: 82947; 88305; 88341; 88342; J2704; J7120

== ENCOUNTER 2022-06-29 23:19 | Emergency (ER) | payer MEDICARE ==
[~2022-06-29] VITALS: Ht 162.6 cm; Wt 90.7 kg
[~2022-06-29 23:19] MED LIST changes: +CO Q10100 MG PO; +FISH OIL-VIT D1 EACH PO; +HYDCHL25 PO; +PRENATAL TABLE1 EAC2 PO; +VITAMIN E400 UNIT PO
[2022-06-29] MEDS ORDERED: FURO20 PO (23:41)
[2022-06-29] MEDS ORDERED: ALEN70 PO (23:42)
[2022-06-29 23:52] LABS: BASOPHILS ABSOLUTE AUTO 0.03 K/mm3 (0.00-0.23); BASOPHILS PERCENT AUTO 0 % (0-2); EOSINOPHILS ABSOLUTE AUTO 0.08 K/mm3 (0.00-0.68); EOSINOPHILS PERCENT AUTO 1 % (0-6); Hematocrit 36.5 % (33.0-51.0); Hemoglobin 12.2 g/dL (11.5-16.0); IMMATURE GRAN ABSOLUTE AUTO 0.01 K/mm3 (0.00-0.10); IMMATURE GRAN PERCENT AUTO 0 % (0-1); LYMPHOCYTES ABSOLUTE AUTO 1.23 K/mm3 (0.84-5.20); LYMPHOCYTES PERCENT AUTO 18 % (21-46); MONOCYTES ABSOLUTE AUTO 0.79 K/mm3 (0.16-1.47); MONOCYTES PERCENT AUTO 12 % (4-13); Mean Corpuscular HGB 30.5 pg (26.0-34.0); Mean Corpuscular HGB Conc 33.4 g/dL (31.5-36.5); Mean Corpuscular Volume 91 fL (80-100); Mean Platelet Volume 10.5 fL (9.1-12.4); NEUTROPHILS ABSOLUTE AUTO 4.72 K/mm3 (1.96-9.15); NEUTROPHILS PERCENT AUTO 69 % (41-73); Platelet Count 154 K/mm3 (150-400); RDW Coefficient Variation 13.4 % (11.7-14.2); RDW Standard Deviation 45.1 fL (35.1-46.3); White Blood Cell Count 6.86 K/mm3 (4.00-11.30)
[2022-06-30 00:05] LABS: Albumin, Blood 2.8 g/dL (3.4-5.0); Albumin/Globulin Ratio 0.8 (0.8-1.8); Bilirubin, Total 0.3 mg/dL (0.1-1.0); Bun/Creatinine Ratio 10.9 (12.0-20.0); Calcium, Blood 9.2 mg/dL (8.5-10.1); Creatinine, Blood 1.74 mg/dL (0.40-1.00); Globulin, Blood 3.7 g/dL (2.2-4.0); Potassium, Blood 3.6 mmol/L (3.5-5.5); Total Protein, Blood 6.5 g/dL (6.4-8.2)
[2022-06-30 02:05] LABS: International Normalized Ratio 0.97; Prothrombin Time Results 10.2 Sec (9.7-11.5)
[2022-06-30 02:19] VITALS: BP 150/61
== END 2022-06-30 02:40 | disposition short-term general hospital (02) ==
LOC: ER 23:19
PROVIDERS: Student in an Organized Health Care Education/Training Program
DX: I71.02 Dissection of abdominal aorta (principal); I16.1 Hypertensive emergency; I10 Essential (primary) hypertension; E11.9 Type 2 diabetes mellitus without complications; E78.5 Hyperlipidemia, unspecified; Z79.82 Long term (current) use of aspirin; Z79.84 Long term (current) use of oral hypoglycemic drugs; Z79.899 Other long term (current) drug therapy
CPT/HCPCS: 36415; 71275; 74175; 80053; 83605; 85025; 85610; 85730; 86850; 86900; 86901; 93005; 93010; 96365-59; 96368; 96375-59; 99285-25; J1170; J2405; J7050; Q9967

== ENCOUNTER 2022-07-11 07:40 | Emergency (ER) | payer MEDICARE ==
[~2022-07-11] VITALS: Ht 162.6 cm; Wt 82.1 kg
[~2022-07-11 07:40] MED LIST changes: +ALEN70 PO; +OXAYDO5 M1 PO
[2022-07-11 11:00] VITALS: BP 158/69
== END 2022-07-11 11:21 | disposition home or self-care (01) ==
LOC: ER 07:40
DX: K59.00 Constipation, unspecified (principal); I10 Essential (primary) hypertension; E11.9 Type 2 diabetes mellitus without complications; I25.10 Atherosclerotic heart disease of native coronary artery without angina pectoris; E78.5 Hyperlipidemia, unspecified; I25.2 Old myocardial infarction; Z88.6 Allergy status to analgesic agent; Z79.899 Other long term (current) drug therapy; Z79.82 Long term (current) use of aspirin; Z79.84 Long term (current) use of oral hypoglycemic drugs; Z87.891 Personal history of nicotine dependence
CPT/HCPCS: 74018; 99283; A9270

== ENCOUNTER 2022-07-25 23:25 | Emergency (ER) | payer MEDICARE ==
[~2022-07-25] VITALS: Ht 162.6 cm; Wt 83.5 kg
[2022-07-25 23:49] LABS: BASOPHILS ABSOLUTE AUTO 0.03 K/mm3 (0.00-0.23); BASOPHILS PERCENT AUTO 1 % (0-2); EOSINOPHILS ABSOLUTE AUTO 0.18 K/mm3 (0.00-0.68); EOSINOPHILS PERCENT AUTO 3 % (0-6); Hematocrit 30.3 % (33.0-51.0); Hemoglobin 10.3 g/dL (11.5-16.0); IMMATURE GRAN ABSOLUTE AUTO 0.01 K/mm3 (0.00-0.10); IMMATURE GRAN PERCENT AUTO 0 % (0-1); LYMPHOCYTES PERCENT AUTO 21 % (21-46); MONOCYTES PERCENT AUTO 10 % (4-13); Mean Corpuscular HGB 30.7 pg (26.0-34.0); Mean Corpuscular Volume 90 fL (80-100); Mean Platelet Volume 9.8 fL (9.1-12.4); NEUTROPHILS ABSOLUTE AUTO 4.09 K/mm3 (1.96-9.15); NEUTROPHILS PERCENT AUTO 66 % (41-73); Platelet Count 227 K/mm3 (150-400); RDW Coefficient Variation 13.4 % (11.7-14.2); RDW Standard Deviation 43.9 fL (35.1-46.3); Red Blood Cell Count 3.35 M/mm3 (3.80-5.20); White Blood Cell Count 6.21 K/mm3 (4.00-11.30)
[2022-07-26 00:01] LABS: Albumin, Blood 2.7 g/dL (3.4-5.0); Albumin/Globulin Ratio 0.7 (0.8-1.8); Bilirubin, Total 0.2 mg/dL (0.1-1.0); Bun/Creatinine Ratio 7.6 (12.0-20.0); Calcium, Blood 9.1 mg/dL (8.5-10.1); Creatinine, Blood 1.85 mg/dL (0.40-1.00); Globulin, Blood 3.9 g/dL (2.2-4.0); Potassium, Blood 3.5 mmol/L (3.5-5.5); Total Protein, Blood 6.6 g/dL (6.4-8.2)
[2022-07-26 01:04] LABS: Source, Urine Foley catheter
[2022-07-26 01:06] LABS: Bilirubin, Urine Neg (Neg); Blood, Urine Neg (Neg); Glucose Qualitative, Urine Neg (Neg); Ketones, Urine Neg (Neg); Leukocyte Esterase, Urine Neg (Neg); Nitrite, Urine Neg (Neg); Protein, Urine 3+ (Neg); Specific Gravity, Urine 1.005 (1.003-1.022); Urobilinogen, Urine NORM (Normal)
[2022-07-26 01:16] LABS: Appearance, Urine Clear (Clear); Bacteria Not Seen /hpf; Color, Urine No Color (P-Yellow); Red Blood Cells, Urine Not Seen /hpf (0-2); Squamous Epithelial Cells Rare /hpf (Few); Transitional Epithelial Cells Rare /hpf (0-Rare); White Blood Cells, Urine Not Seen /hpf (0-5)
[2022-07-26 01:30] VITALS: BP 171/78
[2022-07-26] MEDS ORDERED: METR500 PO (02:16)
[2022-07-26] MEDS ORDERED: CIPR500 PO (02:16)
== END 2022-07-26 02:41 | disposition home or self-care (01) ==
LOC: ER 23:25
PROVIDERS: Emergency Medicine
DX: K57.32 Diverticulitis of large intestine without perforation or abscess without bleeding (principal); I71.40 Abdominal aortic aneurysm, without rupture, unspecified; D64.9 Anemia, unspecified; E11.22 Type 2 diabetes mellitus with diabetic chronic kidney disease; I12.9 Hypertensive chronic kidney disease with stage 1 through stage 4 chronic kidney disease, or unspecified chronic kidney disease; N18.4 Chronic kidney disease, stage 4 (severe); E78.5 Hyperlipidemia, unspecified; I25.2 Old myocardial infarction; I25.10 Atherosclerotic heart disease of native coronary artery without angina pectoris; Z79.899 Other long term (current) drug therapy; Z88.6 Allergy status to analgesic agent; Z79.82 Long term (current) use of aspirin; Z95.5 Presence of coronary angioplasty implant and graft; Z87.891 Personal history of nicotine dependence; Z66 Do not resuscitate
CPT/HCPCS: 51701; 74174; 80053; 81001; 85025; 93005; 93010; 96374-59; 96375-59; 99284-25; A9270; J1170; J2405; Q9967

== ENCOUNTER 2022-07-28 23:05 | Inpatient (IN) | payer MEDICARE ==
[~2022-07-28] VITALS: Ht 162.6 cm; Wt 81.2 kg
[~2022-07-28 23:05] MED LIST changes: +METR500 PO
[2022-07-29] VITALS (7 sets, daily range): BP systolic 144–200; BP diastolic 58–88
[2022-07-29 00:19] LABS: BASOPHILS ABSOLUTE AUTO 0.03 K/mm3 (0.00-0.23); BASOPHILS PERCENT AUTO 0 % (0-2); EOSINOPHILS ABSOLUTE AUTO 0.23 K/mm3 (0.00-0.68); EOSINOPHILS PERCENT AUTO 3 % (0-6); Hematocrit 30.5 % (33.0-51.0); Hemoglobin 10.2 g/dL (11.5-16.0); IMMATURE GRAN ABSOLUTE AUTO 0.01 K/mm3 (0.00-0.10); IMMATURE GRAN PERCENT AUTO 0 % (0-1); LYMPHOCYTES ABSOLUTE AUTO 1.29 K/mm3 (0.84-5.20); LYMPHOCYTES PERCENT AUTO 18 % (21-46); MONOCYTES ABSOLUTE AUTO 0.69 K/mm3 (0.16-1.47); MONOCYTES PERCENT AUTO 10 % (4-13); Mean Corpuscular HGB 30.1 pg (26.0-34.0); Mean Corpuscular HGB Conc 33.4 g/dL (31.5-36.5); Mean Corpuscular Volume 90 fL (80-100); Mean Platelet Volume 9.8 fL (9.1-12.4); NEUTROPHILS ABSOLUTE AUTO 4.88 K/mm3 (1.96-9.15); NEUTROPHILS PERCENT AUTO 69 % (41-73); Platelet Count 193 K/mm3 (150-400); RDW Coefficient Variation 13.7 % (11.7-14.2); RDW Standard Deviation 44.9 fL (35.1-46.3); Red Blood Cell Count 3.39 M/mm3 (3.80-5.20); White Blood Cell Count 7.13 K/mm3 (4.00-11.30)
[2022-07-29 00:44] LABS: Albumin, Blood 2.8 g/dL (3.4-5.0); Albumin/Globulin Ratio 0.7 (0.8-1.8); Bilirubin, Total 0.2 mg/dL (0.1-1.0); Bun/Creatinine Ratio 6.5 (12.0-20.0); Calcium, Blood 8.7 mg/dL (8.5-10.1); Creatinine, Blood 1.99 mg/dL (0.40-1.00); Globulin, Blood 3.9 g/dL (2.2-4.0); Potassium, Blood 3.3 mmol/L (3.5-5.5); Total Protein, Blood 6.7 g/dL (6.4-8.2)
[2022-07-29 01:25] LABS: Source, Urine Clean Catch
[2022-07-29 01:28] LABS: Appearance, Urine Clear (Clear); Bilirubin, Urine Neg (Neg); Blood, Urine Neg (Neg); Color, Urine Yellow (P-Yellow); Glucose Qualitative, Urine Neg (Neg); Ketones, Urine Neg (Neg); Leukocyte Esterase, Urine Neg (Neg); Nitrite, Urine Neg (Neg); Protein, Urine 3+ (Neg); Specific Gravity, Urine 1.005 (1.003-1.022); Urobilinogen, Urine NORM (Normal); pH, Urine 6.5 (5.0-8.0)
[2022-07-29 01:44] LABS: Bacteria Rare /hpf; Red Blood Cells, Urine 0-2 /hpf (0-2); Squamous Epithelial Cells Few /hpf (Few); White Blood Cells, Urine 0-2 /hpf (0-5)
--- NOTE | 2022-07-29 07:36 | NUR ---
SHIFT SUMMARY PATIENT ARRIVED TO PCU 2 VIA STRETCHER. SHE IS ALERT AND ORIENTED X4 WITH SOME FORGETFULNESS NOTED. SHE IS STEADY ON HER FEET BUT REQUIRES ASSISTANCE WITH LINES AND CORDS. PATIENT REPORTED THAT HER PAIN WAS CONTROLLED AT ADMIT, MODERATE ABDOMINAL DISTENTION NOTED, PATIENT NAUSEOUS. BLOOD PRESSURE HYPERTENSIVE, PATIENT DENIES CHEST PAIN. PATIENT PLACED ON 1 LITER O2 VIA NC DUE TO SPO2 OF 87-89%. NO SHORTNESS OF BREATH NOTED. WILL CONTINUE TO MONITOR. CALL LIGHT WITHIN REACH.
[2022-07-29 10:20] LABS: BASOPHILS ABSOLUTE AUTO 0.02 K/mm3 (0.00-0.23); BASOPHILS PERCENT AUTO 0 % (0-2); EOSINOPHILS ABSOLUTE AUTO 0.02 K/mm3 (0.00-0.68); EOSINOPHILS PERCENT AUTO 0 % (0-6); Hematocrit 34.6 % (33.0-51.0); Hemoglobin 11.6 g/dL (11.5-16.0); IMMATURE GRAN ABSOLUTE AUTO 0.03 K/mm3 (0.00-0.10); IMMATURE GRAN PERCENT AUTO 1 % (0-1); LYMPHOCYTES ABSOLUTE AUTO 0.57 K/mm3 (0.84-5.20); LYMPHOCYTES PERCENT AUTO 10 % (21-46); MONOCYTES ABSOLUTE AUTO 0.26 K/mm3 (0.16-1.47); MONOCYTES PERCENT AUTO 4 % (4-13); Mean Corpuscular HGB 30.4 pg (26.0-34.0); Mean Corpuscular HGB Conc 33.5 g/dL (31.5-36.5); Mean Corpuscular Volume 91 fL (80-100); Mean Platelet Volume 9.6 fL (9.1-12.4); NEUTROPHILS ABSOLUTE AUTO 4.97 K/mm3 (1.96-9.15); NEUTROPHILS PERCENT AUTO 85 % (41-73); Platelet Count 195 K/mm3 (150-400); RDW Coefficient Variation 14.1 % (11.7-14.2); RDW Standard Deviation 45.5 fL (35.1-46.3); Red Blood Cell Count 3.82 M/mm3 (3.80-5.20); White Blood Cell Count 5.87 K/mm3 (4.00-11.30)
[2022-07-29 11:11] LABS: Albumin/Globulin Ratio 0.8 (0.8-1.8); Bilirubin, Total 0.5 mg/dL (0.1-1.0); Bun/Creatinine Ratio 6.3 (12.0-20.0); Calcium, Blood 9.4 mg/dL (8.5-10.1); Creatinine, Blood 1.75 mg/dL (0.40-1.00); Potassium, Blood 3.9 mmol/L (3.5-5.5)
--- NOTE | 2022-07-29 16:48 | NUR ---
SHIFT SUMMARY This RN assumed care at 0700. vital signs stable throughout this RNs shift. tele sr. patient is alert and oriented x4, with forgetfulness at times. patient has had multiple episodes of vomiting and nausea throughout this Rns shift and has been medicated per emar. patient has complained of abd pain and has received pain meds per emar. patient is NPO and has remained NPO. patient family has been off and on at bedside. patient reports no chest pain/pressure. patient reports no shortness of breath. see shift assessment for further detials. no acute changes. plan of care is up to date.
[2022-07-29] MEDS ORDERED: COREG25 MG PO (16:52)
[2022-07-29] MEDS ORDERED: ROSU10TA PO (16:53)
[2022-07-30] VITALS (7 sets, daily range): BP systolic 140–188; BP diastolic 44–85
[2022-07-30 04:22] LABS: BASOPHILS ABSOLUTE AUTO 0.03 K/mm3 (0.00-0.23); BASOPHILS PERCENT AUTO 0 % (0-2); EOSINOPHILS PERCENT AUTO 0 % (0-6); Hematocrit 35.7 % (33.0-51.0); Hemoglobin 11.8 g/dL (11.5-16.0); IMMATURE GRAN ABSOLUTE AUTO 0.04 K/mm3 (0.00-0.10); IMMATURE GRAN PERCENT AUTO 1 % (0-1); LYMPHOCYTES ABSOLUTE AUTO 0.89 K/mm3 (0.84-5.20); LYMPHOCYTES PERCENT AUTO 11 % (21-46); MONOCYTES ABSOLUTE AUTO 0.51 K/mm3 (0.16-1.47); MONOCYTES PERCENT AUTO 6 % (4-13); Mean Corpuscular HGB Conc 33.1 g/dL (31.5-36.5); Mean Corpuscular Volume 91 fL (80-100); Mean Platelet Volume 9.6 fL (9.1-12.4); NEUTROPHILS ABSOLUTE AUTO 6.49 K/mm3 (1.96-9.15); NEUTROPHILS PERCENT AUTO 82 % (41-73); Platelet Count 229 K/mm3 (150-400); RDW Coefficient Variation 14.4 % (11.7-14.2); RDW Standard Deviation 47.7 fL (35.1-46.3); Red Blood Cell Count 3.93 M/mm3 (3.80-5.20); White Blood Cell Count 7.96 K/mm3 (4.00-11.30)
[2022-07-30 04:41] LABS: Albumin/Globulin Ratio 0.7 (0.8-1.8); Bilirubin, Total 0.3 mg/dL (0.1-1.0); Bun/Creatinine Ratio 5.4 (12.0-20.0); Calcium, Blood 9.5 mg/dL (8.5-10.1); Creatinine, Blood 1.68 mg/dL (0.40-1.00); Globulin, Blood 4.3 g/dL (2.2-4.0); Potassium, Blood 3.6 mmol/L (3.5-5.5); Total Protein, Blood 7.3 g/dL (6.4-8.2)
--- NOTE | 2022-07-30 06:47 | NUR ---
SHIFT SUMMARY PATIENT ALERT AND ORIENTED X 2-3. SHE BECAME INCREASINGLY CONFUSED OVERNIGHT CONFUSING NEEDING TO GO HOME WITH NEEDING TO USE THE TOILET. SHE HAD TROUBLES FOLLOWING DIRECTIONS AND COULD BE IMPULSIVE. PATIENT DOES HAVE A KNOWN HISTORY OF INCREASED CONFUSION AT NIGHT ACCORDING TO HER DAUGHTER. PATIENT HAD A COUPLE EPISODES OF VOMITING OVERNIGHT. WAS MEDICATED PER EMAR FOR NAUSEA AND PAIN. PATIENT CONTINUES TO BE HYPERTENSIVE AND MEDICATED PER EMAR WITH HYDRALAZINE. LUNG SOUNDS CLEAR WITH SPO2 >90% ON ROOM AIR. HEART SINUS TACH IN THE LOW 100'S, IT DID INCREASE TO THE 140'S WHILE PATIENT WAS ACTIVELY VOMITING. WILL CONTINUE TO MONITOR. CALL LIGHT WTIHIN REACH.
--- NOTE | 2022-07-30 16:36 | NUR ---
SHIFT SUMMARY/TRANSFER OF CARE This RN assumed care at 0700. vital signs stable and have remained stable throughout this RN's shift. patient is alert and oriented x4. patient is forgetful at times. bed alarm and chair alarm on. patient reports no pain, chest pain/pressure, or shortness of breath. see shift assessment for further detials. patient has tolerated oral intake and hasnt had any nausea or vomitting this shift. plan is up to date. patient is medical status with tele. patient is moving to medical room 344 report med RN. patient belongings gathered and taken up with the patient.
--- NOTE | 2022-07-30 17:08 | NUR ---
PATIENT TRANSFERRED FROM PCU 2, ALERT AND ORIENTED, FAMILY AT BEDSIDE, HELPFUL WITH CARE, PATIENT EASILY MAKES NEEDS KNOWN, DENIES ABD PAIN NV, CALL LIGHT WITH IN REACH,
[2022-07-31] VITALS (7 sets, daily range): BP systolic 164–193; BP diastolic 63–90
--- NOTE | 2022-07-31 04:10 | NUR ---
SHIFT SUMMARY PATIENT HAD NO ACUTE CHANGES. AXOX 4, FORGETFUL. REPORTED ABDOMINAL PAIN X ONE AND OXYCODONE 5 MG GIVEN PER EMAR. DENIES CHEST PAIN, SOB, AND N/V. VSS/AFEBRILE. ONE ASSIST TO BSC. PIV REMAINS INTACT. IV ABX INFUSED. CBG 157. TELE MONITOR REPORTS NSR 87. ABLE TO SLEEP MOST OF SHIFT. CALL LIGHT IN REACH. BED IN LOWEST POSITION. WILL CONTINUE TO MONITOR UNTIL DAY SHIFT NURSE ASSUMES CARE.
[2022-07-31 05:36] LABS: BASOPHILS ABSOLUTE AUTO 0.04 K/mm3 (0.00-0.23); BASOPHILS PERCENT AUTO 1 % (0-2); EOSINOPHILS ABSOLUTE AUTO 0.07 K/mm3 (0.00-0.68); EOSINOPHILS PERCENT AUTO 1 % (0-6); Hematocrit 35.6 % (33.0-51.0); Hemoglobin 11.8 g/dL (11.5-16.0); IMMATURE GRAN ABSOLUTE AUTO 0.03 K/mm3 (0.00-0.10); IMMATURE GRAN PERCENT AUTO 0 % (0-1); LYMPHOCYTES ABSOLUTE AUTO 1.39 K/mm3 (0.84-5.20); LYMPHOCYTES PERCENT AUTO 20 % (21-46); MONOCYTES ABSOLUTE AUTO 0.71 K/mm3 (0.16-1.47); MONOCYTES PERCENT AUTO 10 % (4-13); Mean Corpuscular HGB 30.3 pg (26.0-34.0); Mean Corpuscular HGB Conc 33.1 g/dL (31.5-36.5); Mean Corpuscular Volume 92 fL (80-100); Mean Platelet Volume 9.6 fL (9.1-12.4); NEUTROPHILS ABSOLUTE AUTO 4.76 K/mm3 (1.96-9.15); NEUTROPHILS PERCENT AUTO 68 % (41-73); Platelet Count 210 K/mm3 (150-400); RDW Coefficient Variation 14.6 % (11.7-14.2); RDW Standard Deviation 48.9 fL (35.1-46.3); Red Blood Cell Count 3.89 M/mm3 (3.80-5.20)
[2022-07-31 06:11] LABS: Albumin, Blood 2.8 g/dL (3.4-5.0); Albumin/Globulin Ratio 0.7 (0.8-1.8); Bilirubin, Total 0.4 mg/dL (0.1-1.0); Bun/Creatinine Ratio 7.6 (12.0-20.0); Calcium, Blood 9.6 mg/dL (8.5-10.1); Creatinine, Blood 1.84 mg/dL (0.40-1.00); Globulin, Blood 3.9 g/dL (2.2-4.0); Potassium, Blood 3.3 mmol/L (3.5-5.5); Total Protein, Blood 6.7 g/dL (6.4-8.2)
--- NOTE | 2022-07-31 06:39 | NUR ---
SBP 193/78. IV APRESOLINE 10 MG GIVEN FOR SBP >180 SBP 170/75 ON RECHECK
--- NOTE | 2022-07-31 10:26 | NUR ---
PATIENT MORE CONFUSED PRESENTLY THAN THIS AM, ANSWERS QUESTIONS APROPRIATELY, EMOTIONALLY LABILE, DAUGHTER HELPFUL AT BEDSIDE
--- NOTE | 2022-07-31 11:41 | NUR ---
DR BROOKS ROUNDING ON PATIENT NOW, DAUGHTER AT BEDSIDE
--- NOTE | 2022-07-31 18:27 | NUR ---
NO ACUTE CHANGES, MORE CONFUSED TODAY, SHOWERED, MEDICATED FOR ABD PAIN PER EMAR, HTN SBP 170S, NO NV, RA SATS 98%, DAUGHTER AT BEDSIDE HELPFUL WITH CARE, CALL LIGHT WITH IN REACH
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
[2022-08-01 04:10] VITALS: BP 197/71
--- NOTE | 2022-08-01 04:12 | NUR ---
NOTIFIED PTS PRIMARY RN OF PTS AM B/P OF .
[2022-08-01 05:40] VITALS: BP 152/60
--- NOTE | 2022-08-01 05:46 | NUR ---
SBP 197/71 AND IV APRESOLINE 10 MG GIVEN FOR SBP>180. SBP 152/60 ON RECHECK PATIENT NAUSEOUS AND IV REGLAN 10 MG GIVEN PER EMAR.
[2022-08-01 05:56] LABS: BASOPHILS ABSOLUTE AUTO 0.03 K/mm3 (0.00-0.23); BASOPHILS PERCENT AUTO 1 % (0-2); EOSINOPHILS PERCENT AUTO 2 % (0-6); Hematocrit 32.7 % (33.0-51.0); Hemoglobin 10.8 g/dL (11.5-16.0); IMMATURE GRAN ABSOLUTE AUTO 0.02 K/mm3 (0.00-0.10); IMMATURE GRAN PERCENT AUTO 0 % (0-1); LYMPHOCYTES ABSOLUTE AUTO 1.24 K/mm3 (0.84-5.20); LYMPHOCYTES PERCENT AUTO 21 % (21-46); MONOCYTES ABSOLUTE AUTO 0.61 K/mm3 (0.16-1.47); MONOCYTES PERCENT AUTO 10 % (4-13); Mean Corpuscular HGB 30.5 pg (26.0-34.0); Mean Corpuscular Volume 92 fL (80-100); Mean Platelet Volume 10.3 fL (9.1-12.4); NEUTROPHILS PERCENT AUTO 67 % (41-73); Platelet Count 182 K/mm3 (150-400); RDW Coefficient Variation 14.3 % (11.7-14.2); RDW Standard Deviation 48.9 fL (35.1-46.3); Red Blood Cell Count 3.54 M/mm3 (3.80-5.20)
[2022-08-01 06:23] LABS: Albumin, Blood 2.6 g/dL (3.4-5.0); Albumin/Globulin Ratio 0.7 (0.8-1.8); Bilirubin, Total 0.4 mg/dL (0.1-1.0); Bun/Creatinine Ratio 10.5 (12.0-20.0); Calcium, Blood 9.2 mg/dL (8.5-10.1); Creatinine, Blood 1.81 mg/dL (0.40-1.00); Globulin, Blood 3.5 g/dL (2.2-4.0); Potassium, Blood 3.1 mmol/L (3.5-5.5); Total Protein, Blood 6.1 g/dL (6.4-8.2)
[2022-08-01 08:35] VITALS: BP 151/60
--- NOTE | 2022-08-01 11:07 | NUR ---
DR BROOKS ROUNDED THIS AM, CALL MADE TO DR BROOKS, PATIENT ANXIETY AND CONFUSION INCREASED, NEW ORDERS FOR ATIVAN AND TRAMADOL, OXYCODONE DISCONTINUED, DAUGHTER HELPFUL AT BEDSIDE, PATIENT AMBULATED IN HALLS SBA AND FWW, BED/CHAIR ALARM ON, CALL LIGHT LIGHT WITH IN REACH
[2022-08-01 15:08] VITALS: BP 180/75
[2022-08-01 16:29] VITALS: BP 143/58
--- NOTE | 2022-08-01 18:09 | NUR ---
no acute changes, pain medications changed and ativan added, patient rests when alone in the room, daughter talks with patient every 10 minutes asking if she wants blankets or repositioned. sbp 180, treated with hydralazine, sbp 150s, patient continues to by yes/no to pain nausea and needs. very poor appetite, only tolerating clear liquids and easily is full or complains of pain. bed alarm on, daughter at bedside very anxious, will relay to pm rn
[2022-08-01 19:50] VITALS: BP 172/65
--- NOTE | 2022-08-02 01:03 | NUR ---
PATIENT HAD INCREASED AGITATION. PO ATIVAN 0.5 MG GIVEN PER EMAR. PATIENT BACK TO RESTING IN BED AND APOLOGIZED FOR PRIOR OUTBURST. WCTM.
--- NOTE | 2022-08-02 04:05 | NUR ---
SHIFT SUMMARY PATIENT AGITATED X ONE AND TOOK THIRTY MINUTES TO CALM DOWN. UPSET SHE WOKE UP AND COULDN'T GO BACK TO SLEEP. PO ATIVAN 0.5 MG GIVEN PER EMAR AND HELP PATIENT RELAX AND BACK TO BED. PATIENT APOLOGIZED FOR OUTBURST. AXOX 3 AND FORGETFUL. ONE ASSIST TO BSC. DAUGHTER AND SON PRESENT AT SHIFT CHANGE AND STAYED FOR A FEW HOURS. PIV REMAINS INTACT. IV ABX INFUSED. CBG 111. TELE MONITOR NSR 61. VSS/AFEBRILE. DENIES CHEST PAIN, SOB, AND N/V. CALL LIGHT IN REACH. BED IN LOWEST POSITION. WILL CONTINUE TO MONITOR UNTIL DAY SHIFT NURSE ASSUMES CARE.
[2022-08-02 07:33] LABS: BASOPHILS ABSOLUTE AUTO 0.02 K/mm3 (0.00-0.23); BASOPHILS PERCENT AUTO 0 % (0-2); EOSINOPHILS ABSOLUTE AUTO 0.07 K/mm3 (0.00-0.68); EOSINOPHILS PERCENT AUTO 1 % (0-6); Hematocrit 33.6 % (33.0-51.0); Hemoglobin 11.2 g/dL (11.5-16.0); IMMATURE GRAN ABSOLUTE AUTO 0.02 K/mm3 (0.00-0.10); IMMATURE GRAN PERCENT AUTO 0 % (0-1); LYMPHOCYTES ABSOLUTE AUTO 0.71 K/mm3 (0.84-5.20); LYMPHOCYTES PERCENT AUTO 12 % (21-46); MONOCYTES ABSOLUTE AUTO 0.62 K/mm3 (0.16-1.47); MONOCYTES PERCENT AUTO 11 % (4-13); Mean Corpuscular HGB 30.4 pg (26.0-34.0); Mean Corpuscular HGB Conc 33.3 g/dL (31.5-36.5); Mean Corpuscular Volume 91 fL (80-100); Mean Platelet Volume 9.9 fL (9.1-12.4); NEUTROPHILS ABSOLUTE AUTO 4.38 K/mm3 (1.96-9.15); NEUTROPHILS PERCENT AUTO 75 % (41-73); Platelet Count 176 K/mm3 (150-400); RDW Coefficient Variation 14.3 % (11.7-14.2); Red Blood Cell Count 3.69 M/mm3 (3.80-5.20); White Blood Cell Count 5.82 K/mm3 (4.00-11.30)
[2022-08-02 07:38] VITALS: BP 196/81
[2022-08-02 07:53] LABS: Albumin, Blood 2.7 g/dL (3.4-5.0); Albumin/Globulin Ratio 0.8 (0.8-1.8); Bilirubin, Total 0.3 mg/dL (0.1-1.0); Calcium, Blood 9.4 mg/dL (8.5-10.1); Creatinine, Blood 1.63 mg/dL (0.40-1.00); Globulin, Blood 3.5 g/dL (2.2-4.0); Potassium, Blood 3.2 mmol/L (3.5-5.5); Total Protein, Blood 6.2 g/dL (6.4-8.2)
[2022-08-02 09:02] VITALS: BP 150/67
[2022-08-02 14:46] VITALS: BP 193/80
[2022-08-02 16:15] VITALS: BP 159/64
--- NOTE | 2022-08-02 16:40 | NUR ---
PT A&OX4 AND PLEASANT. PT TOLERATING CL DIET AT BREAKFAST. DIET ADVANCED TOLERATED. PT EATING SMALL AMOUNTS OF FOOD BUT TOLERATING WELL. PT AMBULATED TO WINDOW AND BACK 3 TIMES IN AFTERNOON. BP ELEVATED IN MORNING AND AFTERNOON. MEDICATED PER EMAR WITH GOOD EFFECT. FAMILY AT BEDSIDE. PT EMOTIONAL IN AFTERNOON AND VERBAILIZED NOT KNOWING WHY SHE FELT SAD. THIS NURSE SAT WITH PT FOR SOME TIME. PT ABLE TO MAKE NEEDS KNOWN. BED IN LOWEST POSITION AND CALL LIGHT IN REACH.
[2022-08-02 17:55] VITALS: BP 152/53
[2022-08-02 19:39] VITALS: BP 176/63
--- NOTE | 2022-08-03 04:37 | NUR ---
shift summary 87 yr f admitted on 07/29/22 for diverticulitis. dnr. no acute changes this shift. pt has had no c/o significant pain or discomfort. pt had daughter in the room for the first part of the shift. pt appears to have slept well for most of the night. she woke up once in the middle of the night and was slightly confused, but quickly went back to sleep. no episodes of sadness or crying this shift.
[2022-08-03 04:58] VITALS: BP 198/82
[2022-08-03 07:26] VITALS: BP 158/74
[2022-08-03 11:30] VITALS: BP 143/56
[2022-08-03] MEDS ORDERED: TRAM50 PO (11:53)
[2022-08-03] MEDS ORDERED: ONDA4ODT MM (11:54)
[2022-08-03] MEDS ORDERED: QUET25 PO (11:55)
[2022-08-03 13:00] VITALS: BP 126/52
--- NOTE | 2022-08-03 14:15 | NUR ---
DISCHARGE SUMMARY PATIENT DISCHARGED HOME. PATIENT ALERT AND INTERACTIVE WITH DISCHARGE TEACHING. DAUGHTER PRESENT DURING DISCHARGE. FOLLOW UP APPOINTMENT SCHEDULED DISCHARGE INSTRUCTIONS REVIEWED WITH DAUGHTER AND PATIENT. IV DC'D. NEW MEDICATIONS RX SENT TO [facility] PER PATIENT'S REQUEST. ASSISTED PATIENT WITH DRESSING. PATIENT TRANSPORTED OUT VIA WHEELCHAIR. BELONGINGS SENT OUT WITH DAUGHTER.
== END 2022-08-03 15:44 | disposition home or self-care (01) | DRG 392 ==
LOC: ER 23:05 → PCU 07-29 05:16 → MEDS 07-30 17:03 → ENPENDDIS 08-03 10:43 → MEDS 08-03 15:44
PROVIDERS: Emergency Medicine; Family Medicine; Student in an Organized Health Care Education/Training Program; ADMIT Internal Medicine
DX: K57.30 Diverticulosis of large intestine without perforation or abscess without bleeding (principal); N18.4 Chronic kidney disease, stage 4 (severe); F05 Delirium due to known physiological condition; I71.43 Infrarenal abdominal aortic aneurysm, without rupture; I25.10 Atherosclerotic heart disease of native coronary artery without angina pectoris; Z66 Do not resuscitate; Z68.31 Body mass index [BMI] 31.0-31.9, adult; E87.6 Hypokalemia; E11.22 Type 2 diabetes mellitus with diabetic chronic kidney disease; I12.9 Hypertensive chronic kidney disease with stage 1 through stage 4 chronic kidney disease, or unspecified chronic kidney disease; D63.1 Anemia in chronic kidney disease; E03.9 Hypothyroidism, unspecified; E66.9 Obesity, unspecified; I25.2 Old myocardial infarction; L71.1 Rhinophyma; Z98.890 Other specified postprocedural states; Z87.891 Personal history of nicotine dependence; Z79.82 Long term (current) use of aspirin; Z79.84 Long term (current) use of oral hypoglycemic drugs; Z79.899 Other long term (current) drug therapy; Z79.2 Long term (current) use of antibiotics; Z95.5 Presence of coronary angioplasty implant and graft; Z79.891 Long term (current) use of opiate analgesic
CPT/HCPCS: 36415; 74177; 80053; 81001; 82947; 84484; 85025; 96361; 96365; 96367; 96375; 96376; 99285; A9270; J0360; J0696; J0744; J1170; J1650; J1940; J2270; J2405; J2765; J3010; J3480; J7030; J7050; Q9967